=== PATIENT | female | born 1970 | race Caucasian/White ===

== ENCOUNTER 2018-12-08 23:46 | Emergency (ER) | payer MEDICARE, MEDICAID ==
[~2018-12-08] VITALS: Ht 149.9 cm; Wt 63.0 kg
[~2018-12-08 23:46] MED LIST: CALC-557 PO; CITA20TA9 PO; CLOT15CR9 TD; DORZ1DRO5 RIGHTEYE; ESTR1TAB99 PO; HYDR-3237 PO; LEVO112T4 PO; LEVO25TA4 PO; MULT-642 PO; SALINE EYE RIGHTEYE; TAFL1DRO RIGHTEYE
[2018-12-09 00:01] VITALS: BP 129/77
[2018-12-09] MEDS ORDERED: ESTR2TAB PO (00:04)
[2018-12-09] MEDS ORDERED: TRIA15CR3 TP (00:06)
--- NOTE | 2018-12-09 00:09 | NUR ---
KANDACE. REPORT RECEIVED EMS. PT HAD GLF AT [facility] AROUND 10:50 PM TODAY AND HITTING OH RIGHT SIDED BACK OF THE HEAD. PT IS PARTIALLY BLIND. NO LOC. ABOUT 1 INCH LACERATION ON HEAD. NO BLEEDING ON ARRIVAL. PT'S AOX4. RESPS EVEN AND UNLABORED. BP/SPO2 MONITORS IN PLACE. CALL LIGHT WITHIN REACH. PRIMARY SUBSTANCE ABUSE COUNSELOR AT BEDSIDE.
--- NOTE | 2018-12-09 00:11 | NUR ---
PA PUT 2 JESSICA ON LACERATION. PT TOLERATED WELL. PT'S AOX4. RESPS EVEN AND UNLABORED.
[2018-12-09] MEDS ORDERED: ACETAMINOPHEN 325 MG TABLET ONE (00:17)
--- NOTE | 2018-12-09 00:22 | NUR ---
PT MEDICATED PER EMAR. PT TOLERATED WELL. PT'S AOX4. RESPS EVEN AND UNLABORED.
[2018-12-09] MEDS ORDERED: DIPH,PERTUSS(ACELL),TET VAC/PF 0.5 ML IM-VACC ONE ×2 (00:29→00:30)
[2018-12-09] MEDS ORDERED: ACETAMINOPHEN 325 MG TABLET PO ONE (00:30)
--- NOTE | 2018-12-09 00:40 | NUR ---
PT GIVEN TDAP. PT TOLERATED WELL.
--- NOTE | 2018-12-09 00:55 | NUR ---
PT GIVEN DC INSTRUCTIONS. PT'S AOX4. RESPS EVEN AND UNLABORED. PT AMB TO DC WITH STEADY GAIT. NO ACUTE DISTRESS AT DC.
== END 2018-12-09 00:51 | disposition home or self-care (01) ==
LOC: ED 12-09 00:12
DX: S06.0X0A Concussion without loss of consciousness, initial encounter (principal); S01.01XA Laceration without foreign body of scalp, initial encounter; W01.0XXA Fall on same level from slipping, tripping and stumbling without subsequent striking against object, initial encounter; Y93.89 Activity, other specified; Y92.009 Unspecified place in unspecified non-institutional (private) residence as the place of occurrence of the external cause; Y99.8 Other external cause status
CPT/HCPCS: 12031; 90471; 90715